=== PATIENT | female | born 1950 | race Caucasian/White ===

== ENCOUNTER 2020-07-23 09:48 | Emergency (ER) | payer MEDICARE, OTHER ==
[2020-07-23] VITALS (7 sets, daily range): BP systolic 128–154; BP diastolic 69–79
[~2020-07-23] VITALS: Ht 165.1 cm; Wt 70.3 kg
[2020-07-23] MEDS ORDERED: ASCORBIC ACID 500 MG TAB PO ONE (10:15)
[2020-07-23] MEDS ORDERED: ZINC SULFATE 220mg CAP or TAB PO ONE (10:15)
[2020-07-23] MEDS ORDERED: SODIUM CHLORIDE 0.9% 500 ML IV ONE (10:15)
[2020-07-23] MEDS ORDERED: AZITHROMYCIN 500MG/ 250ML 250 ML IV ONE (10:15)
[2020-07-23] MEDS ORDERED: methylPREDNISolone SOD SUCC 125 MG/2 ML VL IV ONE (10:15)
[2020-07-23 10:50] LABS: Basophils # (auto) 0 10 ^3/uL (0-0.2); Basophils % (auto) 0.2 % (0.0-2.0); Eosinophils # (auto) 0 10 ^3/uL (0-0.8); Hematocrit 41.6 % (36.0-46.0); Hemoglobin 14.3 g/dL (12.2-16.2); Lymphocytes % (auto) 14.4 % (10.0-50.0); Mean Corpuscular Hemoglobin 30.7 pg (28.0-32.0); Mean Corpuscular Hgb Conc. 34.3 g/dL (32.0-36.0); Mean Corpuscular Volume 89.6 fL (80.0-100.0); Monocytes # (auto) 0.6 10 ^3/uL (0-1.3); Monocytes % (auto) 9.4 % (0.0-12.0); Nucleated Red Blood Cells % 0.2 %; Platelet Count (auto) 185 10^3/uL (140-450); Red Blood Cells 4.64 10^6/uL (4.0-5.20); White Blood Cell 6.6 10^3/uL (4.4-10.8)
[2020-07-23 11:09] LABS: Albumin 3.5 g/dL (3.4-5.0); Calcium 8.5 mg/dL (8.5-10.1); Potassium 3.5 mmol/L (3.5-5.1)
[2020-07-23 11:13] LABS: BUN/Creatinine Ratio 11.7; Bilirubin, Total 0.6 mg/dL (0.2-1.0); Total Protein 7.4 g/dL (6.4-8.2)
[2020-07-23] MEDS ORDERED: ACETAMINOPHEN 325 MG TAB PO ONE (12:30)
[2020-07-23] MEDS ORDERED: PATIENTS OWN MEDICATION IV ONE (13:15)
[2020-07-23] MEDS ORDERED: BAMLANIVIMAB 700MG/200ML 200 ML IV ONE (14:00)
== END 2020-07-23 18:16 | disposition home or self-care (01) ==
LOC: ER 09:48
DX: U07.1 COVID-19 (principal); J18.9 Pneumonia, unspecified organism
CPT/HCPCS: 36415; 71045; 80053; 85025; 85379; 87426; 96365; 96366; 96375; 99285; J0456; J2930; M0239; Q0239; 96361; 96367; 96368